=== PATIENT | female | born 1940 | race African-American/Black ===

== ENCOUNTER 2016-12-31 10:30 | Outpatient (RCR) | payer OTHER ==
[~2016-12-31 10:30] MED LIST: IBUPROFEN600 MG PO
== END 2017-01-16 | disposition home or self-care (01) ==
LOC: PTY 10:30
DX: M54.41 Lumbago with sciatica, right side (principal); G89.29 Other chronic pain
CPT/HCPCS: 97110; 97140; 97161; G0283